=== PATIENT | male | born 1980 | race Caucasian/White ===

== ENCOUNTER → 2017-03-16 | Outpatient (CLI) | payer OTHER ==
--- NOTE | 2017-03-16 09:00 | US ---
EXAMINATION TYPE: US kidneys/renal and bladder DATE OF EXAM: 03/16/2017 7:57 AM COMPARISON: Ultrasound 06/13/2016 CLINICAL HISTORY: R94.4 Decreased renal function. EXAM MEASUREMENTS: Right Kidney: 11.0 x 6.3 x 4.7 cm Left Kidney: 11.2 x 5.2 x 5.0 cm Right Kidney: slightly echogenic, prominent pyramids Left Kidney: prominent pyramids Bladder: Distended, wnl as visualized Bilateral Jets seen Incidental finding: enlarged spleen = 14.0 cm There is no evidence for hydronephrosis at this point in time. No nephrolithiasis is seen. No agusto s are identified. The urinary bladder is anechoic. Bilateral ureteral jets are seen. IMPRESSION: 1. No acute renal abnormality. 2. Mild splenomegaly
== END ==
LOC: RADUSWWP 07:39
PROVIDERS: ATTEND Family Medicine
DX: R16.1 Splenomegaly, not elsewhere classified (principal)
CPT/HCPCS: 76770

== ENCOUNTER → 2020-06-11 | Outpatient (CLI) | payer OTHER ==
--- NOTE | 2020-06-11 08:22 | US ---
EXAMINATION TYPE: US abdomen comp/pelvis limited DATE OF EXAM: 06/11/2020 COMPARISON: NONE CLINICAL HISTORY: R31.9 Hematuria; R36.1 Hematospermia. patient states only hematospermia no hematuri a, this has happened before, h/o umbilical hernia repair x 3 EXAM MEASUREMENTS: Liver Length: 15.4 cm Gallbladder Wall: 0.2 cm CBD: 0.7 cm Spleen: 13.1 cm Right Kidney: 11.3 x 6.6 x 5.9 cm Left Kidney: 11.4 x 5.9 x 4.5 cm Pancreas: wnl Liver: wnl Gallbladder: hydropic at 12cm, no other abnormality noted CBD: Enlarged Spleen: slightly enlarged Right Kidney: No hydronephrosis or masses seen Left Kidney: No hydronephrosis or masses seen Upper IVC: wnl Abd Aorta: wnl Bladder: wnl Bilateral Jets Seen no, patient not prepped Question some increased cortical echogenicity within the right kidney. IMPRESSION: Splenomegaly dilated common bile duct, hydropic gallbladder, consider gastroenterology co nsult. There may be a component of medical renal disease.
--- NOTE | 2020-06-11 08:46 | US ---
EXAMINATION TYPE: US scrotum with doppler. Grayscale and color Doppler Duplex imaging performed of shey edwards scrotum. DATE OF EXAM: 06/11/2020 COMPARISON: NONE CLINICAL HISTORY: R36.1. hematospermia EXAM MEASUREMENTS: TESTICLES: Right Testicle: 3.0 x 1.9 x 1.6 cm, mild fluid seen inferiorly Left Testicle: 2.5 x 2.1 x 1.5 cm EPIDIDYMIS HEAD: Right Epididymis: 0.5 cm Left Epididymis: 0.7 cm Doppler performed to assess for testicular vascularity; bilateral color flow and waveforms are seen. Presence of hydroceles: no Presence of varicoceles: no Bilateral microlithiasis Scattered foci of increased echogenicity present within the testicles. No evident mass. IMPRESSION: Testicular microlithiasis
--- NOTE | 2020-06-12 08:06 | US ---
EXAMINATION TYPE: US prostate transrectal DATE OF EXAM: 06/11/2020 COMPARISON: NONE CLINICAL HISTORY: R31.9 Hematuria; R36.1 Hematospermia. blood in sperm, has happened in the past, no labs done This examination was performed using the transrectal probe. EXAM MEASUREMENTS: Gland Size: 3.6 x 4.2 x 2.9cm Volume: 22.7ml Predicted PSA: 2.7 Central glandular calcifications are noted. No peripheral zone lesions identified. Prostate gland is of normal size. Visualized seminal vesicles appear grossly unremarkable. IMPRESSION: No distinct abnormality appreciated. Predicted PSA = volume x 0.12 ng/ml Calculated Volume = 0.5236 x L x W x H
== END | disposition home or self-care (01) ==
LOC: RADUSWWP 07:00
PROVIDERS: ATTEND Family Medicine
DX: R16.1 Splenomegaly, not elsewhere classified (principal); K83.8 Other specified diseases of biliary tract; K82.1 Hydrops of gallbladder; R36.1 Hematospermia; N50.89 Other specified disorders of the male genital organs
CPT/HCPCS: 76700; 76857; 76870; 76872; 93975

== ENCOUNTER → 2024-12-06 | Outpatient (CLI) | payer OTHER ==
--- NOTE | 2024-12-06 20:22 | MR ---
EXAMINATION TYPE: MR lumbar spine wo con DATE OF EXAM: 12/06/2024 8:09 PM COMPARISON: 04/04/2016 CLINICAL INDICATION: Male, 44 years old with history of M54.16 RADICULOPATHY, low back pain that radi ates into left and right buttock. TECHNIQUE: Multiplanar, multisequence images of the lumbar spine were acquired. IV Contrast: mL (None, if empty) FINDINGS: Cord ends at the L1-L2 level. L5-S1: There is narrowing of the disc height is normal. Minimal bulge is present with anterior thecal sac flattening. No AP spinal canal stenosis is present. Mild ligamentum flavum laxity is present. Mi ld to moderate facet hypertrophy is present. There is moderate bilateral foraminal narrowing. Findin gs are similar to the comparison. L4-L5: No focal disc herniation or significant disc bulge. No spinal canal stenosis. Neural foramen are patent. L3-L4: No focal disc herniation or significant disc bulge. No spinal canal stenosis. Neural foramen are patent. L2-L3: No focal disc herniation or significant disc bulge. No spinal canal stenosis. Neural foramen are patent. L1-L2: No focal disc herniation or significant disc bulge. No spinal canal stenosis. Neural foramen are patent. T12-L1: No focal disc herniation or significant disc bulge. No spinal canal stenosis. Neural forame n are patent. IMPRESSION: 1. Mild degenerative disc change with loss of disc height and minimal bulge L5-S1. Moderate bilateral foraminal narrowing is present. 2. Examination appears stable from comparison [facility], , 12/06/2024 8:20 PM
== END | disposition home or self-care (01) ==
LOC: RADMRIMAIN 18:45
PROVIDERS: ATTEND Family Medicine
DX: M51.16 Intervertebral disc disorders with radiculopathy, lumbar region (principal); M99.73 Connective tissue and disc stenosis of intervertebral foramina of lumbar region
CPT/HCPCS: 72148